=== PATIENT | female | born 1975 | race Caucasian/White ===

== ENCOUNTER 2016-06-28 04:08 | Emergency (ER) | payer OTHER ==
[2016-06-28 04:13] VITALS: BP 147/93
--- NOTE | 2016-06-28 04:24 | ED Physician Documentation ---
PD HPI URI - Stated complaint Stated Complaint: SORE THROAT,DANIEL EAR PAIN - Chief complaint Chief Complaint: Heent - History obtained from History obtained from: Patient, Family - History of Present Illness Timing - onset: How many days ago (5) Timing details: Gradual onset, Still present Associated symptoms: Fever, Ear pain, Nasal congestion, Sinus pain Similar symptoms before: Work up / diagnostics, Treatment Recently seen: Not recently seen - Additional information Additional information: Patient is a 40 year old female with no significant past medical history who is presenting to the emergency department for a 5 day history of ear pain, sore throat, fevers and congestion. Patient states that the symptoms have been progressively worse so she came to the emergency department for evaluation. Review of Systems Constitutional: reports: Fever, Chills Eyes: denies: Irritation Ears: reports: Ear pain. denies: Tinnitus/ringing Nose: reports: Congestion, Sinus pressure / pain Throat: reports: Sore throat, Swollen tonsils Cardiac: denies: Chest pain / pressure, Palpitations Respiratory: denies: Cough, Wheezing GI: denies: Nausea, Vomiting : denies: Dysuria, Frequency, Hematuria, Discharge Skin: denies: Rash, Lesions Musculoskeletal: denies: Neck pain, Back pain Neurologic: denies: Generalized weakness, Focal weakness, Headache Immunocompromised: denies: Immunocompromised PD PAST MEDICAL HISTORY - Past Medical History Cardiovascular: None Respiratory: None Neuro: None Endocrine/Autoimmune: None GI: None 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 : None HEENT: None Psych: Depression, Anxiety Musculoskeletal: None Derm: None - Past Surgical History Past Surgical History: Yes Ortho: Carpal Tunnel surgery /ENVIRONMENTAL MONITORING TECHNICIAN: section - Present Medications Home Medications: Ambulatory Orders Medication Instructions Recorded Confirmed Amoxicillin 1,000 mg PO TID 7 Days 06/28/16 Bcp 06/28/16 Water Pill 06/28/16 - Allergies Allergies/Adverse Reactions: Allergies Allergy/AdvReac Type Severity Reaction Status Date / Time No Known Drug Allergies Allergy Verified 05/23/14 10:58 - Social History Does the pt smoke?: Yes Smoking Status: Current every day smoker Does the pt drink ETOH?: No Does the pt have substance abuse?: No - Immunizations Immunizations are current?: Yes - POLST Patient has POLST: No PD ED PE NORMAL - Vitals Vital signs reviewed: Yes - General General: Alert and oriented X 3, No acute distress - HEENT HEENT: Atraumatic, PERRL - Neck Neck: Supple, no meningeal sign, No JVD - Cardiac Cardiac: RRR, No murmur - Respiratory Respiratory: No respiratory distress, Clear bilaterally - Abdomen Abdomen: Soft, Non tender, Non distended - Derm Derm: Normal color, Warm and dry, No rash - Extremities Extremities: No deformity - Neuro Neuro: Alert and oriented X 3, No motor deficit, No sensory deficit, Normal speech - Psych Psych: Normal mood, Normal affect PD ED PE EXPANDED - HEENT HEENT: R TM dull, R TM bulging, R TM loss of landmarks, L TM red, L TM retracted , Nasal congestion, Moist mucous membranes, Pharyngeal erythema, Swollen tonsils Results - Vitals Vitals: Vital Signs - 24 hr 06/28/16 04:10 Temperature 36.5 C Heart Rate 80 Respiratory 20 Rate Blood Pressure 147/93 H O2 Saturation 95 Oxygen O2 Source Room air - Labs Labs: Laboratory Tests 06/28/16 04:11 Group A Strep Rapid Negative PD MEDICAL DECISION MAKING - ED course Complexity details: reviewed old records, reviewed results, re-evaluated patient , considered differential, d/w patient ED course: Patient was seen and examined at bedside. Patient was in no acute distress. rapid strep was performed. patient's findings were consistent with otitis media. Patient was treated with amoxicillin and ibuprofen. patient required no further work up at this time and was stable for discharge with outpatient follow up. Departure - Departure Disposition: 01 Home, Self Care Clinical Impression: Otitis media Condition: Good Instructions: ED Otitis Media Serous Adult Follow-Up: primary,care provider [Other] - Within 3 Days (re-evlaute ears) Prescriptions: Amoxicillin 1,000 mg PO TID 7 Days Comments: Your symptoms are being caused by an ear infection. You had your first dose of antibiotics tonight. You will need to take it three times a day for the next week. You should take it with yogurt or probiotics to help diminish the GI side effects. You may take motrin or tylenol as needed for pain. You should follow up with your pmd if your symptoms persist. You may return to the emergency department at any time for new, worsening or uncontrollable symptoms.
[2016-06-28] MEDS ORDERED: IBUPROFEN 600 MG TABLET PO ONE (04:26)
[2016-06-28] MEDS ORDERED: AZITHROMYCIN 250 MG TABLET PO ONE (04:26)
[2016-06-28] MEDS ORDERED: AMOXICILLIN 250 MG CAPSULE PO ONE (04:27)
[2016-06-28] MEDS: AMOXICILLIN 250 MG CAPSULE PO STA (04:30)
[2016-06-28] MEDS: IBUPROFEN 600 MG TABLET PO STA (04:30)
[2016-06-28 04:33] LABS: RAPID STREP SCREEN REAGENT QC YELLOW (YELLOW)
== END 2016-06-28 04:47 | disposition home or self-care (01) ==
LOC: ED 04:08
DX: H66.93 Otitis media, unspecified, bilateral (principal)
CPT/HCPCS: 87070; 87430; 99283

== ENCOUNTER 2017-06-24 08:53 | Emergency (ER) | payer OTHER ==
--- NOTE | 2017-06-24 10:13 | ED Physician Documentation ---
PD HPI HEENT - Stated complaint Stated Complaint: EAR PX - Chief complaint Chief Complaint: Heent - History obtained from History obtained from: Patient - History of Present Illness Timing - onset: How many days ago (4) Timing - duration: Days (4) Timing - details: Gradual onset, Still present Location: Right ear, Left ear, Sinuses, Nose, Throat Improves: Medication Worsens: Swalllowing Associated symptoms: Congestion, Rhinorrhea, Cough Similar symptoms before: Diagnosis (OM and sinusitis) Recently seen: Not recently seen - Additional information Additional information: 41-year-old female is recently come back from vacation and has pain in both of her ears, she has some drainage from the left ear, she has a cough and congestion as well. She has a bit of a sore throat with this and she has had all of these things previously with middle ear infection and sinusitis. Review of Systems Constitutional: denies: Fever Eyes: denies: Decreased vision Ears: reports: Ear pain, Drainage/discharge Nose: reports: Rhinorrhea / runny nose, Congestion Throat: reports: Sore throat Cardiac: denies: Chest pain / pressure, Palpitations Respiratory: reports: Cough. 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 : None HEENT: None Psych: Depression, Anxiety Musculoskeletal: None Derm: None - Past Surgical History Past Surgical History: Yes Ortho: Carpal Tunnel surgery /UNIT RECEPTIONIST: section - Present Medications Home Medications: Ambulatory Orders Medication Instructions Recorded Confirmed Azithromycin [Zithromax] 250 mg PO DAILY #6 tablet 06/24/17 - Allergies Allergies/Adverse Reactions: Allergies Allergy/AdvReac Type Severity Reaction Status Date / Time No Known Drug Allergies Allergy Verified 05/23/14 10:58 - Social History Does the pt smoke?: Yes Smoking Status: Current every day smoker Does the pt drink ETOH?: No Does the pt have substance abuse?: No - Immunizations Immunizations are current?: Yes - POLST Patient has POLST: No PD ED PE NORMAL - Vitals Vital signs reviewed: Yes (normal ) - General General: Alert and oriented X 3, No acute distress, Well developed/nourished, Other (nasal quality to the voice. ) - HEENT HEENT: Atraumatic, PERRL, EOMI, Other (The left TM is obscured by cerumen the right is inflammed with indistinct landmarks. ) - Neck Neck: Supple, no meningeal sign, No bony TTP - Cardiac Cardiac: RRR, No murmur - Respiratory Respiratory: No respiratory distress, Clear bilaterally - Abdomen Abdomen: Soft, Non tender - Back Back: No CVA TTP, No spinal TTP - Derm Derm: Normal color, Warm and dry, No rash - Extremities Extremities: No deformity, No edema - Neuro Neuro: No motor deficit, No sensory deficit Eye Opening: Spontaneous Motor: Obeys Commands Verbal: Oriented GCS Score: 15 - Psych Psych: Normal mood, Normal affect Results - Vitals Vitals: Vital Signs - 24 hr 06/24/17 08:57 Temperature 36.2 C L Heart Rate 88 Respiratory 18 Rate Blood Pressure 131/79 H O2 Saturation 96 Oxygen O2 Source Room air PD MEDICAL DECISION MAKING - ED course Complexity details: considered differential, d/w patient ED course: 41-year-old female with signs and symptoms of otitis has otitis on exam and is administered dexamethasone will place her on some azithromycin as she has had good luck with this previously. Departure - Departure Disposition: 01 Home, Self Care Clinical Impression: Otitis media Qualifiers: Otitis media type: suppurative Chronicity: acute Laterality: bilateral Recurrence: not specified as recurrent Spontaneous tympanic membrane rupture: with spontaneous rupture Qualified Code(s): H66.013 - Acute suppurative otitis media with spontaneous rupture of ear drum, bilateral Condition: Stable Instructions: ED Otitis Media Acute Adult Follow-Up: MISSY LEE [Primary Care Provider] - Prescriptions: Azithromycin [Zithromax] 250 mg PO DAILY #6 tablet
[2017-06-24] MEDS ORDERED: DEXAMETHASONE 10 MG/ML VIAL PO STA (10:15)
[2017-06-24 10:23] VITALS: BP 128/72
[2017-06-24] MEDS ORDERED: CHERRY SYRUP 10 ML UDC PO ONE (10:26)
== END 2017-06-24 10:22 | disposition home or self-care (01) ==
LOC: ED 08:53
DX: H66.013 Acute suppurative otitis media with spontaneous rupture of ear drum, bilateral (principal); F17.200 Nicotine dependence, unspecified, uncomplicated
CPT/HCPCS: 99283; A9270

== ENCOUNTER 2017-10-20 01:16 | Emergency (ER) | payer OTHER ==
[2017-10-20 01:34] VITALS: BP 115/85
--- NOTE | 2017-10-20 02:32 | ED Physician Documentation ---
History of Present Illness - Stated complaint Stated Complaint: RT FOOT PAIN - Chief complaint Chief Complaint: Ext Problem - History obtained from History obtained from: Patient - History of Present Illness Timing: How many weeks ago (6) Pain level max: 8 Pain level now: 6 Improved by: rest Worsened by: weight-bearing, palpation - Additonal information Additional information: c/o 6 weeks of gradual onset, gradually worsening right heel pain, plantar aspect. no injury. the symptom onset and worsening seem to correlate with recent increase in exercise, specifically walking a couple of miles daily. the pain is distinctly worse with weight-bearing and she is having difficulty effectively bearing any weight on RLE tonight. ibuprofen was providing some relief but no longer effective Review of Systems Cardiac: reports: Reviewed and negative Respiratory: reports: Reviewed and negative Skin: denies: Rash Musculoskeletal: reports: Extremity pain, Pain with weight bearing. 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 : None HEENT: None Psych: Depression, Anxiety Musculoskeletal: None Derm: None - Past Surgical History Past Surgical History: Yes Ortho: Carpal Tunnel surgery /SETTER JUICE PACKAGING MACHINES: section - Present Medications Home Medications: Ambulatory Orders Medication Instructions Recorded Confirmed Azithromycin [Zithromax] 250 mg PO DAILY #6 tablet 06/24/17 oxyCODONE/ACET 5/325 [Percocet 5 1 - 2 each PO Q6H PRN #14 tablet 10/20/17 mg/325 mg] - Allergies Allergies/Adverse Reactions: Allergies Allergy/AdvReac Type Severity Reaction Status Date / Time No Known Drug Allergies Allergy Verified 10/20/17 01:34 - Social History Does the pt smoke?: Yes Smoking Status: Current every day smoker Does the pt drink ETOH?: No Does the pt have substance abuse?: No - Immunizations Immunizations are current?: Yes - POLST Patient has POLST: No PD ED PE NORMAL - Vitals Vital signs reviewed: Yes - General General: Alert and oriented X 3, No acute distress, Well developed/nourished - Derm Derm: Normal color, Warm and dry, No rash - Extremities Extremities: Normal ROM s pain, No edema, No calf tenderness / cord, Other ( tender to palpation at heel, plantar aspect only) Results - Vitals Vitals: Vital Signs - 24 hr 10/20/17 04:24 Heart Rate 69 Respiratory 17 Rate O2 Saturation 96 Oxygen O2 Source Room air - Rads (name of study) foot xrays Radiology: Prelim report reviewed, See rad report PD MEDICAL DECISION MAKING - ED course Complexity details: reviewed results, re-evaluated patient, considered differential, d/w patient - Sepsis Event Vital Signs: Vital Signs - 24 hr 10/20/17 04:24 Heart Rate 69 Respiratory 17 Rate O2 Saturation 96 Oxygen O2 Source Room air Departure - Departure Disposition: 01 Home, Self Care Clinical Impression: Heel pain Condition: Good Instructions: ED Heel Spur, ED Plantar Fasciitis Follow-Up: MISSY LEE [Primary Care Provider] - Within 1 week Prescriptions: oxyCODONE/ACET 5/325 [Percocet 5 mg/325 mg] 1 - 2 each PO Q6H PRN #14 tablet PRN Reason: Pain Discharge Date/Time: 10/20/17 04:25
--- NOTE | 2017-10-20 03:22 | XRAY Report ---
Reason: right heel pain, tenderness Procedure Date: 10/20/2017 Accession Number: [id number] / [id number] Procedure: XR - Foot 3 View RT CPT Code: FULL RESULT: EXAM: RIGHT FOOT RADIOGRAPHY EXAM DATE: 10/20/2017 02:56 AM. CLINICAL HISTORY: Right heel pain, tenderness. COMPARISON: None. TECHNIQUE: 3 views. FINDINGS: Bones: Plantar and posterior calcaneal spurring. No fracture. Joints: Normal. No subluxations. Soft Tissues: Normal. No soft tissue swelling. IMPRESSION: Calcaneal spurring. No evidence of fracture. [facility]
[2017-10-20] MEDS ORDERED: oxyCODONE/ACET 5/325 Prepack 4 PO STA (04:03)
== END 2017-10-20 04:25 | disposition home or self-care (01) ==
LOC: ED 01:16
DX: M77.31 Calcaneal spur, right foot (principal); F17.200 Nicotine dependence, unspecified, uncomplicated
CPT/HCPCS: 99283

== ENCOUNTER 2022-12-20 11:00 | Outpatient (CLI) | payer BC ==
[2022-12-20 17:48] LABS: HGB - HEMOGLOBIN 13.3 g/dL (12.0-16.0); MEAN CORPUSCULAR HEMOGLOBIN 30.1 pg (27.0-31.0); MEAN CORPUSCULAR HGB CONC 31.7 g/dL (32.0-36.0); MEAN PLATELET VOLUME 11.8 fL (7.9-10.8); RED BLOOD COUNT 4.42 10^6/uL (4.20-5.40); RED CELL DISTRIBUTION WIDTH 13.8 % (12.0-15.0); WHITE BLOOD COUNT 6.3 x10^3/uL (4.8-10.8)
[2022-12-20 18:17] LABS: ALBUMIN 4.1 g/dL (3.2-5.5); ALBUMIN/GLOBULIN RATIO 1.2 (1.0-2.2); ALKALINE PHOSPHATASE 65 IU/L (42-121); ALT ALANINE AMINOTRANSFERASE 27 IU/L (10-60); AST ASPARTATE AMINOTRANSFERASE 22 IU/L (10-42); BILIRUBIN,TOTAL 0.3 mg/dL (0.2-1.0); BUN - BLOOD UREA NITROGEN 10 mg/dL (6-20); CALCIUM 9.7 mg/dL (8.5-10.3); CARBON DIOXIDE - CO2 27 mmol/L (21-32); CHLORIDE 106 mmol/L (101-111); CHOL/HDL RATIO 6.5 (<4.4); CHOLESTEROL 183 mg/dL; CREATININE 0.6 mg/dL (0.6-1.3); GFR - MDRD 107 (>89); GLUCOSE 84 mg/dL (74-104); HDL CHOLESTEROL 28 mg/dL; LDL CHOLESTEROL,CALCULATED 124 mg/dL; LDL/HDL RATIO 4.4 (<4.4); POTASSIUM 3.9 mmol/L (3.5-4.5); SODIUM 141 mmol/L (135-145); TOTAL PROTEIN 7.5 g/dL (6.4-8.9); TRIGLYCERIDES 153 mg/dL (48-352); VLDL CHOLESTEROL 31 mg/dL
[2022-12-20 18:41] LABS: THYROID STIMULATING HORMONE 1.82 uIU/mL (0.34-5.60)
[2022-12-20 19:11] LABS: FECAL OCCULT BLOOD (FIT) NEGATIVE (NEGATIVE)
== END 2022-12-20 11:01 | disposition home or self-care (01) ==
LOC: LAB.N 11:00
PROVIDERS: ATTEND Family Medicine
DX: Z98.84 Bariatric surgery status (principal); Z12.11 Encounter for screening for malignant neoplasm of colon
CPT/HCPCS: 36415; 80053; 80061; 82274; 82306; 82607; 82728; 83721; 84443; 85027

== ENCOUNTER 2023-02-06 08:00 | Outpatient (CLI) | payer BC | END 2023-02-06 23:59 | disposition home or self-care (01) | LOC: LAB 08:00 | PROVIDERS: ATTEND Physician Assistant Medical | DX: R59.0 Localized enlarged lymph nodes (principal) | CPT/HCPCS: 87070 ==